=== PATIENT | male | born 1945 | race Caucasian/White ===

== ENCOUNTER 2016-12-27 17:07 | Emergency (ER) | payer OTHER ==
[2016-12-27 18:10] LABS: BILIRUBIN NEGATIVE (NEGATIVE); BLOOD NEGATIVE Ery/uL (NEGATIVE); CLARITY HAZY (CLEAR); COLOR YELLOW (YELLOW); GLUCOSE (U) NORMAL (NORMAL); KETONE (U) NEGATIVE (NEGATIVE); LEUKOCYTES NEGATIVE Leu/uL (NEGATIVE); NITRITE NEGATIVE (NEGATIVE); PROTEIN NEGATIVE (NEGATIVE); UROBILINOGEN 0.2 mg/dL (0.2-1.0)
[2016-12-27 18:31] LABS: LACTIC ACID 1.2 mmol/L (0.5-2.2)
[2016-12-27 18:35] LABS: ALBUMIN 4.6 g/dL (3.4-4.8); BILIRUBIN - TOTAL 0.5 mg/dL (0.1-1.0); CREATININE 0.9 mg/dL (0.7-1.2); GLOBULIN (CALCULATION) 2.5 g/dL (2.2-4.2); TOTAL PROTEIN 7.1 g/dL (6.4-8.3)
[2016-12-27 18:37] LABS: BASOPHIL 0.4 % (0-2); EOSINOPHIL 1.2 % (0-7); HCT 45.7 % (42.0-52.0); HGB 15.4 g/dl (13.2-18.0); LYMPHOCYTE 16.8 % (15-48); MCH 28.9 pg (25.0-31.0); MCHC 33.7 g/dL (32.0-36.0); MCV 85.7 fL (78.0-100.0); MPV 9.7 fL (6.0-9.5); NEUTROPHIL 73.6 % (41-80); PLT 246 K/uL (150-400); RBC 5.33 M/uL (4.70-6.00); RDW 13.7 % (11.5-14.0); WBC 7.8 K/uL (4.0-10.5)
== END 2016-12-27 21:30 | disposition home or self-care (01) ==
LOC: FER 17:07
PROVIDERS: Internal Medicine
DX: K21.9 Gastro-esophageal reflux disease without esophagitis (principal); R19.7 Diarrhea, unspecified; I11.9 Hypertensive heart disease without heart failure; I25.2 Old myocardial infarction; E11.9 Type 2 diabetes mellitus without complications; E78.5 Hyperlipidemia, unspecified; N40.0 Benign prostatic hyperplasia without lower urinary tract symptoms; Z79.4 Long term (current) use of insulin; Z79.82 Long term (current) use of aspirin; Z79.84 Long term (current) use of oral hypoglycemic drugs; Z79.899 Other long term (current) drug therapy
CPT/HCPCS: 36415; 80053; 81003; 83605; 83690; 85025; 87088; 87205; 87324; 87449; 93005; J2405